=== PATIENT | male | born 1945 | race Native Hawaiian/Other Pacific Islander ===

== ENCOUNTER → 2017-06-06 | Outpatient (CLI) | payer MEDICARE, OTHER ==
[2017-06-06 12:27] LABS: APPEARANCE,URINE CLEAR (CLEAR); GLUCOSE, URINE (UA) NEGATIVE (NEGATIVE); KETONES,URINE NEGATIVE (NEGATIVE); LEUKOCYTE ESTERASE ,URINE NEGATIVE (NEGATIVE); OCCULT BLOOD,URINE NEGATIVE (NEGATIVE); PH,URINE 5.5 (5.0-8.0); PROTEIN,URINE NEGATIVE (NEGATIVE)
[2017-06-06 12:32] LABS: ADD UA MICROSCOPIC NO
== END | disposition home or self-care (01) ==
LOC: LABPV 11:08
PROVIDERS: ATTEND Internal Medicine Pulmonary Disease
DX: R50.9 Fever, unspecified (principal)
CPT/HCPCS: 87086

== ENCOUNTER → 2019-11-23 | Outpatient (CLI) | payer MEDICAID ==
[2019-11-23 13:06] LABS: CALCIUM, TOTAL 8.8 mg/dL (8.8-10.5); CREATININE 1.29 mg/dL (0.60-1.30); MAGNESIUM 2.1 mg/dL (1.80-2.40); PHOSPHORUS 3.5 mg/dL (2.5-4.9)
[2019-11-23 13:34] LABS: FOLATE SERUM 11.4 ng/mL (5.4-)
== END | disposition home or self-care (01) ==
LOC: LABPV 12:08
PROVIDERS: ATTEND Internal Medicine Pulmonary Disease
DX: G47.61 Periodic limb movement disorder (principal)
CPT/HCPCS: 82607; 82728; 82746; 83735; 84100